=== PATIENT | female | born 1955 | race Caucasian/White ===

== ENCOUNTER 2021-12-23 07:35 | Day surgery (SDC) | payer MEDICARE, OTHER ==
[2021-12-22 10:29] LABS: BASOPHILS % (AUTO) 0.3 % (0-1); EOSINOPHILS # (AUTO) 0.3 X10'3 (0-0.9); LYMPHOCYTES % (AUTO) 22.5 % (21-51); MEAN CORPUSCULAR HEMOGLOBIN 27.6 PG (27.0-31.0); MEAN CORPUSCULAR HGB CONC 33.6 g/dL (33.0-36.5); MEAN CORPUSCULAR VOLUME 82.3 FL (78-98); MEAN PLATELET VOLUME 7.2 FL (7.4-10.4); MONOCYTES # (AUTO) 0.8 X10'3 (0-0.9); MONOCYTES % (AUTO) 9.4 % (2-12); NEUTROPHILS # (AUTO) 5.8 X10'3 (1.8-7.7); NEUTROPHILS % (AUTO) 64.8 % (42-75); PRE OP HEMATOCRIT 45.4 % (35.0-45.0); PRE OP HEMOGLOBIN 15.2 g/dL (12.0-16.0); PRE OP PLATELET COUNT 379 X10'3 (140-440); RED BLOOD COUNT 5.52 X10'6 (4.20-5.60); RED CELL DISTRIBUTION WIDTH 14.7 % (11.5-14.5)
[2021-12-22 10:42] LABS: ALBUMIN/GLOBULIN RATIO 1.2 (1.1-1.5); ALKALINE PHOSPHATASE 50 IU/L (46-116); BLOOD UREA NITROGEN 23 MG/DL (7-18); BUN/CREATININE RATIO 19.7 (6.6-38.0); CALCIUM 9.2 MG/DL (8.5-10.1); CHLORIDE 102 MMOL/L (99-107); CREATININE 1.17 MG/DL (0.40-0.90); PRE OP ALT 29 U/L (30-65); PRE OP ANION GAP 8 (8-16); PRE OP AST 19 U/L (10-37); PRE OP BILIRUB, TOTAL 0.4 MG/DL (0.0-1.0); PRE OP GLUCOSE 87 MG/DL (70-104); PRE OP POTASSIUM 3.5 MMOL/L (3.4-5.1); PRE OP SODIUM 141 MMOL/L (135-145); TOTAL CARBON DIOXIDE 30.9 MMOL/L (24-32); TOTAL PROTEIN 7.4 G/DL (6.4-8.2); eGFR 46 ML/MIN
[~2021-12-23] VITALS: Ht 152.4 cm; Wt 104.1 kg
[2021-12-23] VITALS (9 sets, daily range): BP systolic 122–142; BP diastolic 58–77
[~2021-12-23 07:35] MED LIST: ACET-1025 PO; DULO60CA65 PO; KEN0.1O TP; LEVO25TA7 PO; MAGN250T11 PO; METF-900 PO; METH-798 PO; MULT-1085 PO; SPIR50TA5 PO; TRIA1CAP6 PO; [UNRECOGNIZED DRUG - OTHER] PO; cefazolin/dext.iso 2gm/50ml IV ONE; famotidine 20mg tablet PO ONE; ringers solution, lacted 1,000 ML IV SCH
[2021-12-23] MEDS ORDERED: LIDOcaine 1% 30ml preserv. free vial ONE (09:15)
[2021-12-23] MEDS ORDERED: BUPIVAcaine 0.5% inj/PF 30 ML ONE (11:20)
[2021-12-23] MEDS ORDERED: MIDAZolam 1 MG/ML 5ML VIAL ONE (11:38)
[2021-12-23] MEDS ORDERED: fentaNYL/PF 50MCG/1 ML 2ML syringe ONE (11:38)
[2021-12-23] MEDS ORDERED: ketorolac trometh. 30mg/ml inj. ONE (12:16)
--- NOTE | 2021-12-23 12:22 | NUR ---
Received from OR via [facility], accompanied by Anesthesiologist DR MARTE and report given by Anesthesiologist. PT DROWSY, DENIES PAIN. LEFT HAND/WRIST W/BIAS DRSG COVERING CDI, FINGERS PWD, VINEYARD TENDER 1-2 SECONDS. Addendum: 12/23/21 at 1319 by Regine Pena RN Amended: Links added.
[2021-12-23] MEDS ORDERED: BUPIVAcaine 0.5% inj/PF 30 ml vial IJ ONE (12:25)
--- NOTE | 2021-12-23 13:42 | NUR ---
PT UP AND ABLE TO AMBULATE SAFELY. D/C INSTRUCTIONS GIVEN AND GONE OVER W/PT WHO VERBALIZED UNDERSTANDING. PT D/CD TO HOME VIA W/C TO PRIVATE VEHICLE W/O INCIDENT. Addendum: 12/23/21 at 1359 by Regine Pena RN Amended: Links added.
== END 2021-12-23 13:42 | disposition home or self-care (01) ==
LOC: PAS 07:35
PROVIDERS: ATTEND Orthopaedic Surgery Hand Surgery
DX: G56.02 Carpal tunnel syndrome, left upper limb (principal); G47.30 Sleep apnea, unspecified; I10 Essential (primary) hypertension; F32.A Depression, unspecified; M19.90 Unspecified osteoarthritis, unspecified site; E66.01 Morbid (severe) obesity due to excess calories; Z68.41 Body mass index [BMI] 40.0-44.9, adult; E28.2 Polycystic ovarian syndrome; Z20.822 Contact with and (suspected) exposure to COVID-19; Z88.2 Allergy status to sulfonamides; Z88.8 Allergy status to other drugs, medicaments and biological substances; Z79.899 Other long term (current) drug therapy; Z96.641 Presence of right artificial hip joint; Z72.89 Other problems related to lifestyle; Z98.890 Other specified postprocedural states; Z91.09 Other allergy status, other than to drugs and biological substances
CPT/HCPCS: 29848; 36415; 80053; 82948; 85025; 87635; 93005; A6222; C9803; J1885; J2250; J3010; J3490; J7030; J7120; S0020; Z7506; Z7512; A4215; A7000